=== PATIENT | male | born 1970 | race Caucasian/White ===

== ENCOUNTER 2025-03-26 10:40 | Emergency (ER) | payer OTHER ==
[2025-03-26 10:49] VITALS: BP 140/99; PULSE 73; RESP 16; TEMP 97.7; BMI 21.6
[2025-03-26 12:45] LABS: URINE APPEARANCE CLEAR; URINE BILIRUBIN NEGATIVE (NEGATIVE); URINE COLOR YELLOW; URINE GLUCOSE (UA) NEGATIVE (NEGATIVE); URINE KETONE NEGATIVE (NEGATIVE); URINE LEUK ESTERASE NEGATIVE (NEGATIVE); URINE NITRITE NEGATIVE (NEGATIVE); URINE PROTEIN NEGATIVE (NEGATIVE); URINE UROBILINOGEN 0.2 mg/dL (0.2-1.0)
[2025-03-26] MEDS ORDERED: IBUPROFEN 600 MG TABLET (FP) PO ONE (13:06)
[2025-03-26] MEDS ORDERED: ACETAMINOPHEN 500 MG TABLET (FP) ONE (13:06)
[2025-03-26] MEDS ORDERED: LIDOCAINE 4% PATCH TP ONE (13:06)
[2025-03-26] MEDS: IBUPROFEN 600 MG TABLET (FP) PO ONE (13:12)
[2025-03-26] MEDS: LIDOCAINE 4% PATCH TP ONE (13:13)
[2025-03-26] MEDS: ACETAMINOPHEN 500 MG TABLET (FP) PO ONE (13:13)
[2025-03-26] MEDS ORDERED: LIDOCAINE PATCH REMOVAL MC SCH (22:00)
== END 2025-03-26 13:45 | disposition home or self-care (01) ==
LOC: JERFT 10:40
DX: M54.50 Low back pain, unspecified (principal)
CPT/HCPCS: 72100-TC-FY; 81003; 87086; 99284-25